=== PATIENT | male | born 1965 | race Caucasian/White ===

== ENCOUNTER 2021-06-27 14:41 | Emergency (ER) | payer BC, SELFPAY ==
[2021-06-27 14:48] VITALS: BP 140/92; PULSE 112; RESP 20; TEMP 36.5; O2SAT 97
--- NOTE | 2021-06-27 14:49 | ED.WOUNDLAC ---
HPI - Wound/Laceration General Chief Complaint: Wound/Laceration Stated Complaint: Laceration to Finger/Left Hand Time Seen by Provider: 06/27/21 14:49 Source: patient, family and RN notes reviewed History of Present Illness HPI narrative: Patient is a 55-year-old male who presents the urgent care with his spouse with complaints of a laceration to the left index finger. Patient is right-hand dominant and states that he was using a machete to cut pumpkins approximately 30 minutes prior to arrival and it sliced the left index finger. Patient states that he is up-to-date on his tetanus. Denies of any other injuries. No acute distress noted. Patient and spouse aware of the plan of care. Some parts of this dictation were generated by voice recognition software and may contain typographical and/or grammatical inaccuracies. Related Data Home Medications Medication Instructions Recorded Confirmed bupropion HCl 300 mg PO QAM 06/27/21 06/27/21 duloxetine 30 mg PO DAILY 06/27/21 06/27/21 lovastatin 20 mg PO DAILY 06/27/21 06/27/21 Allergies Allergy/AdvReac Type Severity Reaction Status Date / Time No Known Allergies Allergy Verified 06/27/21 14:55 Review of Systems Review of Systems: CONSTITUTIONAL: Denies fever, chills, or sweats. EYES: Denies visual changes, redness, or discharge. ENT: Denies rhinorrhea, congestion, sore throat, or otalgia. CARDIOVASCULAR: Denies chest pain, palpitations, or edema. RESPIRATORY: Denies cough or dyspnea. GASTROINTESTINAL: Denies abdominal pain, nausea, vomiting, or diarrhea. GENITOURINARY: Denies dysuria or hematuria. SKIN: Reports of a laceration to the left index finger MUSCULOSKELETAL: Denies back pain, joint pain, or myalgia. NEUROLOGIC: Denies headache, numbness, or weakness. All other systems reviewed are negative, except as documented in HPI. PMFSH Comments At the time of my signature, I reviewed and agree with the nursing past medical, surgical, social, and family history. There is no relevant family history pertinent to the patient complaint. Exam Narrative: GENERAL: This is a well-nourished, well-developed patient, in no apparent distress. HEAD: normocephalic, atraumatic. EYES: PERRL. Sclera clear/white. Vision is grossly intact. EARS: External ears normal NOSE: External nose normal with no obvious nasal discharge, nares without redness, no rhinorrhea. THROAT: Mucous membranes moist, posterior pharynx clear. NECK: Neck supple CARDIOVASCULAR: Regular rate and rhythm SKIN: 3 cm linear laceration to the dorsal aspect of the left index finger between the PIP and the MCP. Warm, intact with no suspicious lesions or rash, good texture and turgor. NEURO: awake, alert, and oriented to person, place and time. There were no obvious focal neurologic abnormalities. EXTREMITIES: Range of motion to left upper extremity within normal limits. Positive strong left radial pulse with capillary refill less than 2 seconds Course Vital Signs Vital signs: Vital Signs Temperature 97.7 F 06/27/21 14:48 Pulse Rate 112 H 06/27/21 14:48 Respiratory Rate 20 06/27/21 14:48 Blood Pressure 140/92 H 06/27/21 14:48 Pulse Oximetry 97 06/27/21 14:48 Temperature 97.7 F 06/27/21 14:48 Pulse Rate 112 H 06/27/21 14:48 Respiratory Rate 20 06/27/21 14:48 Blood Pressure 140/92 H 06/27/21 14:48 Pulse Oximetry 97 06/27/21 14:48 Reviewed-patient is informed that they may have pre-hypertension or hypertension based on a blood pressure reading in the department. I recommend the patient call the primary care provider listed on their discharge instructions or a physician of their choice this week to arrange follow-up for further evaluation of possible pre-hypertension or hypertension. Procedures Laceration Laceration 1: Site: other (Index finger) Side (If applicable): left Size (cm): 3 Description: linear Depth: simple, single layer Local Anesthetic: jorge
== END 2021-06-27 15:41 | disposition home or self-care (01) ==
PROVIDERS: Emergency Provider Nurse Practitioner Family
DX: S61.211A Laceration without foreign body of left index finger without damage to nail, initial encounter (principal); W27.8XXA Contact with other nonpowered hand tool, initial encounter; E78.00 Pure hypercholesterolemia, unspecified; F41.9 Anxiety disorder, unspecified
CPT/HCPCS: 12002; 99212; G0463

== ENCOUNTER 2024-05-06 19:21 | Emergency (ER) | payer OTHER, SELFPAY ==
--- NOTE | ~2024-05-06 | XR_ITS ---
XR foot RT min 3V Ordering provider: Latrice Martinez NP History: . stepped on nail, pain, infection . Comparison: None. FINDINGS: BONES: No acute fracture or dislocation. Calcaneus spur. JOINT SPACES: Normal. No tarsal coalition. SOFT TISSUES: Normal. IMPRESSION: No acute osseous abnormality of the right foot. Reviewed, dictated and finalized at location A.
[2024-05-06 19:28] VITALS: BP 134/77; PULSE 100; RESP 16; TEMP 36.6; O2SAT 98
--- NOTE | 2024-05-06 19:32 | ED.SKABFB ---
HPI - Skin/Abscess/Foreign Bdy General Chief complaint: Wound/Laceration Stated complaint: Puncture Wound/Right Foot Time Seen by Provider: 05/06/24 19:34 Source: patient and RN notes reviewed Mode of arrival: ambulatory Limitations: dementia History of Present Illness HPI narrative: 58-year-old male presents with concern for redness, pain to his right foot. Reports more than 5 weeks ago he stepped on a screw that was attached to a board that had a puncture wound on the bottom of his foot. He reports he has had pain in the foot since that time but over the last 3 days has had redness, swelling, warmth in the dorsal foot above where the puncture wound was. He denies fever, aches, chills, sweats MD complaint: other (Redness) Related Data Home Medications Medication Instructions Recorded Confirmed bupropion HCl 300 mg 24 hr tablet, 300 mg PO QAM 06/27/21 06/27/21 extended release lovastatin 20 mg tablet 20 mg PO DAILY 06/27/21 06/27/21 lisinopril 30 mg tablet mg 05/06/24 sildenafil 50 mg tablet mg 05/06/24 Allergies Allergy/AdvReac Type Severity Reaction Status Date / Time No Known Allergies Allergy Verified 06/27/21 14:55 Review of Systems Review of Systems: CONSTITUTIONAL: Denies malaise, chills, sweats, or fever. EYES: Denies redness, or discharge. ENT: Denies rhinorrhea, congestion, swollen lips, swollen tongue CARDIOVASCULAR: Denies chest pain, palpitations, or edema. RESPIRATORY: Denies cough or dyspnea. GASTROINTESTINAL: Denies abdominal pain, nausea, vomiting SKIN: Reports redness, swelling, pain to the dorsal right foot. Denies purulent drainage, vesicles, bullae, numbness, pain beyond proportion MUSCULOSKELETAL: Reports right foot pain NEUROLOGIC: Denies headache. All systems reviewed & are unremarkable except as noted in HPI and below PMFSH Comments At time of signature, agree with nursing past medical, surgical, social and family history. There is no relevant family history pertinent to the presenting complaint Exam Narrative: GENERAL: Well-appearing, well-nourished, and in no acute distress. HEAD: Normocephalic, atraumatic. EYES: PERRLA, conjunctivae clear ENT: Mucous membranes moist. NECK: Supple. No lymphadenopathy CHEST: Clear to auscultation. No respiratory distress. HEART: Regular rate and rhythm. SKIN: Warm, dry. Erythema, induration, tenderness, warmth with sharp margins noted dorsal right foot, closed/healed puncture wound noted to the pedal aspect of the right foot. No vesicles, bullae, necrosis, ecchymosis, crepitus noted. NEURO: Alert and oriented x3. PSYCH: Normal mood and affect Course Course Emergency Course: Patient is aware of diagnosis, understands and agrees to treatment plan. Anticipatory guidance given. Patient agrees to follow-up as directed and is aware of reasons to seek care at the emergency department. Portions of this record may have been created with voice recognition software Level of Care: Express Care Visit Vital Signs Vital signs: Vital Signs Temperature 98 F 05/06/24 19:28 Pulse Rate 100 05/06/24 19:28 Respiratory Rate 16 05/06/24 19:28 Blood Pressure 134/77 05/06/24 19:28 Pulse Oximetry 98 05/06/24 19:28 Oxygen Delivery Room Air 05/06/24 19:28 Temperature 98 F 05/06/24 19:28 Pulse Rate 100 05/06/24 19:28 Respiratory Rate 16 05/06/24 19:28 Blood Pressure 134/77 05/06/24 19:28 Pulse Oximetry 98 05/06/24 19:28 Oxygen Delivery Room Air 05/06/24 19:28 Reviewed. MDM - Skin/Abscess/Foreign Bdy MDM Narrative Medical decision making narrative: I evaluated this in the [facility] care. History is obtained from patient who is an independent historian and physical exam was performed.? Available medical records were reviewed. ? Exam findings and relevant testing show no acute concerns or changes; patient is non-toxic appearing and is in no distress. No risk factors or findings concerning for epidural
== END 2024-05-06 19:54 | disposition home or self-care (01) ==
PROVIDERS: Emergency Provider Nurse Practitioner; PCP Physician Assistant
DX: L03.115 Cellulitis of right lower limb (principal); E78.00 Pure hypercholesterolemia, unspecified; F41.9 Anxiety disorder, unspecified
CPT/HCPCS: 73630; 99213; G0463

== ENCOUNTER 2024-09-23 13:26 | Emergency (ER) | payer OTHER, SELFPAY ==
[2024-09-23 13:30] VITALS: BP 102/67; PULSE 110; RESP 18; TEMP 36.1; O2SAT 97
--- OUTSIDE RECORDS SUMMARY | 2024-09-23 13:31 | XMS_ITS | Encounter Summary ---
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 us Historical Provider Final Res ult documented in this encounter Visit Diagnoses Not on filedocumented in this encounter Additional Health Concerns Infection Onset Date Last Indicated Resolved Time COVID: Suspected 08/20/2023 08/20/2023 08/20/2023 5:37 PM BAR EXAMINER COVID: Suspected 08/20/2023 08/20/2023 08/20/2023 10:18 PM BAR EXAMINER Influenza, adult 08/20/2023 08/20/2023 08/27/2023 3:07 AM BAR EXAMINER documented as of this encounter Care Teams Mechanical Maintenance Worker Relationship Specialty Start Date End Date Blessing Jolly PA [address] [facility] [address] [place] [address] PCP - General Internal Medicine 12/13/18 documented as of this encounter
--- OUTSIDE RECORDS SUMMARY | 2024-09-23 13:31 | XMS_ITS | Encounter Summary ---
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 us Historical Provider Final Res ult documented in this encounter Visit Diagnoses Not on filedocumented in this encounter Additional Health Concerns Infection Onset Date Last Indicated Resolved Time COVID: Suspected 08/20/2023 08/20/2023 08/20/2023 5:37 PM TERRITORY SALES REPRESENTATIVE COVID: Suspected 08/20/2023 08/20/2023 08/20/2023 10:18 PM TERRITORY SALES REPRESENTATIVE Influenza, adult 08/20/2023 08/20/2023 08/27/2023 3:07 AM TERRITORY SALES REPRESENTATIVE documented as of this encounter Care Teams Aviation Safety Technician Relationship Specialty Start Date End Date Blessing Jolly PA [address] [facility] [address] [place] [address] PCP - General Internal Medicine 12/13/18 documented as of this encounter
--- OUTSIDE RECORDS SUMMARY | 2024-09-23 13:31 | XMS_ITS | Encounter Summary ---
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 Historical Provider Final Res ult * PROCEDURE - RESULT (03/19/2018 12:00 AM CDT) Narrative 03/19/2018 12:00 AM CDT Ordered by an unspecified provider. Historical Provider Final Res ult documented in this encounter Visit Diagnoses Not on filedocumented in this encounter Additional Health Concerns Infection Onset Date Last Indicated Resolved Time COVID: Suspected 08/20/2023 08/20/2023 08/20/2023 5:37 PM RAILROAD COOK COVID: Suspected 08/20/2023 08/20/2023 08/20/2023 10:18 PM RAILROAD COOK Influenza, adult 08/20/2023 08/20/2023 08/27/2023 3:07 AM RAILROAD COOK documented as of this encounter Care Teams Manager Basketball Relationship Specialty Start Date End Date Blessing Jolly PA [address] [facility] [address] [place] [address] PCP - General Internal Medicine 12/13/18 documented as of this encounter
--- OUTSIDE RECORDS SUMMARY | 2024-09-23 13:31 | XMS_ITS | Referral Summary ---
Author Organization [facility] [address] [facility] Address [address] [place] [address] Care Team Providers Care Broaching Machine Operator Name Role Phone Blessing Jolly Primary Care Provider [phone]- [phone] Encounters Date Type Department Care Team Description 09/13/2024 Orders Only [facility] Medicine [address] [place] [address] [place] [phone] Blessing Jolly PA Hypertension, essential (Primary Dx); Hypertriglyceridemia; Annual physical exam; Fatigue, unspecified type; Prostate cancer screening; Hyperglycemia; Other fatigue 09/13/[address] [place] [phone] Blessing Jolly PA from Last 3 Months Allergies No known active allergies Medications lisinopriL (PRINIVIL,ZESTR IL) 30 mg tablet Take 1 tablet (30 mg total) by mouth daily 90 tablet 3 4 Active buPROPion XL (WELLBUTRIN XL) 300 mg 24 hr tablet Take 1 tablet (300 mg total) by mouth every morning 90 tablet 3 4 Active rosuvastatin (CRESTOR) 10 mg tablet Take 1 tablet (10 mg total) by mouth daily 90 tablet 3 4 Active sildenafiL (VIAGRA) 50 mg tablet TAKE 1 TABLET BY MOUTH DAILY NEEDED FOR ERECTILE DYSFUNCTION 30 tablet 4 Active Active Problems Problem Noted Date Diagnosed Date Colon cancer screening 08/23/2023 Prostate cancer screening 04/07/2022 Assessment & Plan (08/23/2023 5:10 PM MUSICAL INSTRUMENTS ASSEMBLER): Check PSA Assessment & Plan (04/07/2022 12:40 AM CDT): Check PSA Nocturia 04/07/2022 Assessment & Plan (04/07/2022 12:42 AM CDT): This is a significant, separately identifiable problem that was evaluated and managed on the same day as the wellness exam Patient has noticed increased nocturia. Will rule out UTI. He desires referral to [facility] consult for further evaluation Morbid obesity 11/18/2021 Assessment & Plan (08/23/2023 5:10 PM MUSICAL INSTRUMENTS ASSEMBLER): Discussed the patient's BMI. The BMI is above average. BMI management plan is completed. BMI Follow-up includes: nutrition counseling, exercise counseling and education provided. Patient has an obesity-related condition (not limited to: hypertension, obstructive sleep apnea, osteoarthritis, hyperlipidemia, diabetes, etc.). Therefore, morbid obesity may be documented for patients with a BMI between 35.00-39.99. Assessment & Plan (04/07/2022 12:42 AM CDT): Discussed the patient's BMI. The BMI is above average. BMI management plan is completed. BMI Follow-up includes: nutrition counseling, exercise counseling and education provided. Patient has an obesity-related condition (not limited to: hypertension, obstructive sleep apnea, osteoarthritis, hyperlipidemia, diabetes, etc.). Therefore, morbid obesity may be documented for patients with a BMI between 35.00-39.99. Assessment & Plan (11/18/2021 3:14 PM CDT): Obesity is unchanged. Discussed the patient's BMI. The BMI is above average. BMI management plan is completed. BMI Follow-up includes: nutrition counseling, exercise counseling and education provided. BMI 36.0-36.9,adult 11/18/2021 Assessment & Plan (08/23/2023 5:10 PM MUSICAL INSTRUMENTS ASSEMBLER): Discussed the patient's BMI. The BMI is above average. BMI management plan is completed. BMI Follow-up includes: nutrition counseling, exercise counseling and education provided. Assessment & Plan (04/07/2022 12:42 AM CDT): Discussed the patient's BMI. The BMI is above average. BMI management plan is completed. BMI Follow-up includes: nutrition counseling, exercise counseling and education provided. Assessment & Plan (11/18/2021 3:14 PM CDT): Obesity is unchanged. Discussed the patient's BMI. The BMI is above average. BMI management plan is completed. BMI Follow-up includes: nutrition counseling, exercise counseling and education provided. Elevated LFTs 11/18/2021 Assessment & Plan (12/10/2021 5:54 AM CDT): Patient had elevated LFTs but upon recheck they have normalized. Continue to monitor. Assessment & Plan (11/18/2021 9:25 PM CDT): This is a significant, separately identifiable problem that was evaluated and managed on the same day as the wellness exam Check hepatitis panel and recheck labs. Encouraged to decrease alcohol. Will monitor medications very carefully recheck in a couple months. ED (erectile dysfunction) 11/18/2021 Assessment & Plan (08/23/2023 5:10 PM MUSICAL INSTRUMENTS ASSEMBLER): Continue Viagra Assessment & Plan (04/07/2022 12:40 AM CDT): Patient has tried Viagra for his ED symptoms without sufficient results. Ready to see the urologist. Will make referral to [facility]. Assessment & Plan (12/10/2021 5:55 AM CDT): Patient has been experiencing erectile dysfunction. It seems to be related to the Cymbalta as once he stopped this his performance did improve. However his emotional stability is not as good off of it so discussed options of restarting the Cymbalta and adding erectile dysfunction medication like Viagra. Reviewed risks benefits alternatives side effects and proper use. Reviewed it is important to get his blood pressure tightly controlled and monitor his symptoms as Viagra can affect blood pressure. He is not on nitrate. If he experiences chest pain shortness of breath visual changes or has extended erection he is to follow up immediately for further evaluation which may include an ER visit. He voices understanding Assessment & Plan (11/18/2021 9:23 PM CDT): Reviewed with patient the there are multiple reasons for XL dysfunction. It can be related to SSRIs or SNRIs but he also has elevated blood pressure today as well as cholesterol issues. Stressed the importance of correcting the blood pressure. He states he is extremely tired today and is in convinced he does have high blood pressure so will have him check it at home over the next week and then follow-up in the office next Thursday for BP check. If elevated will start medication. Once that is corrected if symptoms still persist may consider Viagra versus referral to Urology. Discussed relationships and how that can also affect performance. Hypertension, essential 11/18/2021 Assessment & Plan (08/23/2023 5:10 PM MUSICAL INSTRUMENTS ASSEMBLER): Bp is stable/in acceptable range for any co-morbidities. Encouraged to limit sodium intake and exercise for weight control. Continue lisinopril 30 Assessment & Plan (04/07/2022 12:40 AM CDT): Bp is stable/in acceptable range for any co-morbidities. Encouraged to limit sodium intake and exercise for weight control. Continue lisinopril 30 Assessment & Plan (12/14/2021 3:21 PM CDT): The has been on lisinopril 10. Increase to 20. May take 2 of his 10 mg tablets until the supplies exhausted and then will increase dose as appropriate. Follow with me in 1 week with the nurse to reassess blood pressure readings or sooner if he has any problems or concerns Assessment & Plan (12/10/2021 5:58 AM CDT): Encouraged to limit sodium intake and exercise for weight control. Patient is to increase his lisinopril to 30 mg daily. Will continue to monitor closely. Follow-up in 1 week with nurse to recheck or sooner for any other problems or concerns. He thinks he still has enough supply of the 10 mg to take 3 together until they are exhausted. Assessment & Plan (11/18/2021 9:25 PM CDT): This is a significant, separately identifiable problem that was evaluated and managed on the same day as the wellness exam BP is elevated today but patient thinks it is because he is sleep deprived. Will have him check readings at home and bring them in with him next week follow-up on Thursday with the nurse for BP check. If normalized that is acceptable if not will start a antihypertension medication. Annual physical exam 11/05/2020 Assessment & Plan (08/23/2023 5:10 PM MUSICAL INSTRUMENTS ASSEMBLER): Encouraged healthy lifestyle, good nutrition and exercise. Encouraged Calcium and Vitamin D and weight bearing exercise for bone health. Reviewed immunizations Reviewed age appropirate screenings. Assessment & Plan (11/18/2021 9:21 PM CDT): Encouraged healthy lifestyle, good nutrition and exercise. Encouraged Calcium and Vitamin D and weight bearing exercise for bone health. Reviewed immunizations Reviewed age appropirate screenings. Assessment & Plan (11/05/2020 9:27 PM CDT): Encouraged healthy lifestyle, good nutrition and exercise. Encouraged Calcium and Vitamin D and weight bearing exercise for bone health. Reviewed immunizations Reviewed age appropirate screenings. Fatigue 11/05/2020 Assessment & Plan (08/23/2023 5:10 PM MUSICAL INSTRUMENTS ASSEMBLER): Probably multifactorial. Check labs and followup to re-evaluate Assessment & Plan (04/07/2022 12:40 AM CDT): Probably multifactorial. Check labs and followup to re-evaluate Assessment & Plan (11/05/2020 9:26 PM CDT): .sonali Diabetes mellitus screening 11/05/2020 Assessment & Plan (04/07/2022 12:40 AM CDT): Check labs Assessment & Plan (11/05/2020 9:26 PM CDT): Check labs Influenza vaccine refused 08/14/2019 Assessment & Plan (08/14/2019 9:38 PM MUSICAL INSTRUMENTS ASSEMBLER): Encouraged vaccine. Reviewed risks/ benefits. Patient refuses and accepts risks. Moderate episode of recurrent major depressive d isorder 12/12/2018 Assessment & Plan (08/23/2023 5:09 PM MUSICAL INSTRUMENTS ASSEMBLER): Continue Wellbutrin XL 300 Assessment & Plan (04/07/2022 12:42 AM CDT): This is a significant, separately identifiable problem that was evaluated and managed on the same day as the wellness exam Patient has been on Cymbalta 60 Wellbutrin XL 300. He is been coming on off of it as thinks it may give side effects towards ED. He states today he just really does not feel like his symptoms are as well controlled as they have been. He is ready to see a psychiatrist. Names of psychiatrists provided for him to call and make the appointment. He denies any suicidal or homicidal thoughts. If these occur he is to contact the office immediately or go to the ER if it is after hours Assessment & Plan (12/10/2021 5:54 AM CDT): Increased depression anxiety symptoms. This has happened since he stopped the Cymbalta. He is still doing Wellbutrin 300 mg. Encouraged him to restart the Cymbalta at 30 mg x 7 days and increase to 60 mg. Will see if that does control his symptoms but limit the amount of ED symptoms that he experiences. Will also start erectile dysfunction medication. Planned follow-up in 6 weeks to reassess. Assessment & Plan (11/18/2021 9:20 PM CDT): Symptoms had been fairly well controlled with Cymbalta 90 and Wellbutrin XL 300. Patient states 2 blood ago decreased to Cymbalta to 30 mg as he thought it was contributing to ED. Will continue monitor his symptoms and continue the current dose at 30 mg. Assessment & Plan (11/05/2020 9:24 PM CDT): Continue Cymbalta 90mg daily and Wellbutrin [id number] daily Assessment & Plan (09/19/2019 8:49 AM MUSICAL INSTRUMENTS ASSEMBLER): Stable with the Wellbutrin 300 mg and Cymbalta 90 mg. New prescription sent to pharmacy. Will plan to have him follow-up in about 6 months. Still encourage counseling. He still has the name a counselors in the area. Also discussed the possibility of an EAP opportunity at his employer. Encouraged him to check with human resources. Assessment & Plan (08/14/2019 9:39 PM MUSICAL INSTRUMENTS ASSEMBLER): This is a significant, separately identifiable problem that was evaluated and managed on the same day as the wellness exam Continue the Cymbalta restart Wellbutrin. Stressed importance of not running out/keeping appointments. Encouraged counseling and provided names/number for him to schedule at his convenience Assessment & Plan (12/18/2018 1:00 PM CDT): Stable. Continue current meds. Encouraged to start counseling and provided listing to choose from. Mixed hyperlipidemia 12/12/2018 Assessment & Plan (08/23/2023 5:10 PM MUSICAL INSTRUMENTS ASSEMBLER): Encouraged patient to follow low fat/low chol diet like the Mediterranean diet. Increase good fats in the diet. Increase exercise. Monitor labs as needed. Continue Crestor 10 Assessment & Plan (04/07/2022 12:40 AM CDT): Encouraged patient to follow low fat/low chol diet like the Mediterranean diet. Increase good fats in the diet. Increase exercise. Monitor labs as needed. He transition to Crestor in November. He is due for labs. Assessment & Plan (11/18/2021 9:24 PM CDT): This is a significant, separately identifiable problem that was evaluated and managed on the same day as the wellness exam Encouraged patient to follow low fat/low chol diet like the Mediterranean diet. Increase good fats in the diet. Increase exercise. Monitor labs as needed. Lipids are not well controlled with the lovastatin. Encouraged him to stop it and will transition to the Crestor 10 mg. He has elevated LFTs so will have to watch these closely. Encouraged no alcohol and will check hepatitis panel to rule out any other underlying cause. May be related to fatty liver so monitor closely and recheck labs in a couple months. Assessment & Plan (11/05/2020 9:24 PM CDT): Encouraged patient to follow fat/low chol diet like the Mediterranean diet. Increase good fats in the diet. Increase exercise. Monitor labs as needed. Continue statin Assessment & Plan (08/14/2019 9:35 PM MUSICAL INSTRUMENTS ASSEMBLER): Encouraged patient to continue low fat/low chol diet. Continue exercise. Increase good fats in the diet. Monitor labs as needed. Assessment & Plan (12/18/2018 12:59 PM CDT): Encouraged patient to continue low fat/low chol diet. Continue exercise. Increase good fats in the diet. Monitor labs as needed. Continue statin Daytime sleepiness 12/12/2018 Vitamin D deficiency 12/12/2018 Assessment & Plan (08/14/2019 9:34 PM MUSICAL INSTRUMENTS ASSEMBLER): supplement Assessment & Plan (12/18/2018 12:58 PM CDT): Supplement otc Hypertriglyceridemia 12/12/2018 Assessment & Plan (08/23/2023 5:10 PM MUSICAL INSTRUMENTS ASSEMBLER): Encouraged patient to follow low fat/low chol diet like the Mediterranean diet. Increase good fats in the diet. Increase exercise. Monitor labs as needed. Continue Crestor 10 Assessment & Plan (11/18/2021 9:21 PM CDT): Encouraged patient to follow low fat/low chol diet like the Mediterranean diet. Increase good fats in the diet. Increase exercise. Monitor labs as needed. Lipids are not well controlled with the lovastatin. Encouraged him to stop it and will transition to the Crestor 10 mg. He has elevated LFTs so will have to watch these closely. Encouraged no alcohol and will check hepatitis panel to rule out any other underlying cause. May be related to fatty liver so monitor closely and recheck labs in a couple months. Assessment & Plan (11/05/2020 9:24 PM CDT): Encouraged patient to follow fat/low chol diet like the Mediterranean diet. Increase good fats in the diet. Increase exercise. Monitor labs as needed. Continue statin Assessment & Plan (08/14/2019 9:34 PM MUSICAL INSTRUMENTS ASSEMBLER): Encouraged patient to continue low fat/low chol diet. Continue exercise. Increase good fats in the diet. Monitor labs as needed. Assessment & Plan (12/18/2018 12:59 PM CDT): Encouraged patient to continue low fat/low chol diet. Continue exercise. Increase good fats in the diet. Monitor labs as needed. Due for labs Resolved Problems Problem Noted Date Diagnosed Date Resolved Date Obesity (BMI 30-39.9) 11/05/20202021 Assessment & Plan (11/05/2020 5:02 PM CDT): Obesity is unchanged. Discussed the patient's BMI. The BMI is above average. BMI management plan is completed. BMI Follow-up includes: nutrition counseling, exercise counseling and education provided. BMI 38.0-38.9,adult 11/05/2020 11/19/19 Assessment & Plan (11/05/2020 5:02 PM CDT): Obesity is unchanged. Discussed the patient's BMI. The BMI is above average. BMI management plan is completed. BMI Follow-up includes: nutrition counseling, exercise counseling and education provided. BMI 37.0-37.9, adult 09/19/2019 021 Assessment & Plan (09/19/2019 8:17 AM MUSICAL INSTRUMENTS ASSEMBLER): Obesity is unchanged. Discussed the patient's BMI. The BMI is above average. BMI management plan is completed. BMI Follow-up includes: nutrition counseling, exercise counseling and education provided. Annual physical exam 08/14/2019 020 Assessment & Plan (08/14/2019 9:38 PM MUSICAL INSTRUMENTS ASSEMBLER): Encouraged healthy lifestyle, good nutrition and exercise. Encouraged Calcium and Vitamin D and weight bearing exercise for bone health. Reviewed immunizations Reviewed age appropirate screenings. BMI 38.0-38.9,adult 08/03/2019 09/19/19 20 Assessment & Plan (08/03/2019 8:12 AM MUSICAL INSTRUMENTS ASSEMBLER): Obesity is unchanged. Discussed the patient's BMI. The BMI is above average. BMI management plan is completed. BMI Follow-up includes: nutrition counseling, exercise counseling and education provided. Dysuria 12/18/2018 11/05/2020 Assessment & Plan (12/18/2018 12:58 PM CDT): Check urine culture, psa and STD labs. If negative, may consider BPH medication vs referral to Urology Other fatigue 12/18/2018 08/14/2019 Assessment & Plan (12/18/2018 1:00 PM CDT): Probably multifactorial. Check labs and followup to re-evaluate Screening for STD (sexually transmitted disease) 12/18/2018 08/14/2019 Assessment & Plan (12/18/2018 1:00 PM CDT): Check std labs Prostate cancer screening 12/18/2018 Assessment & Plan (12/18/2018 1:00 PM CDT): Check labs Need for Tdap vaccination 12/18/2018 Assessment & Plan (12/18/2018 1:00 PM CDT): Tdap updated in the office today BMI 37.0-37.9, adult 12/13/2018 019 Assessment & Plan (12/18/2018 12:59 PM CDT): Obesity is unchanged. Discussed the patient's BMI. The BMI is above average; BMI management plan is completed. General weight loss/lifestyle modification strategies discussed (elicit support from others; identify saboteurs; non-food rewards, etc). Obesity (BMI 30-39.9) 12/13/20182020 Assessment & Plan (09/19/2019 8:17 AM MUSICAL INSTRUMENTS ASSEMBLER): Obesity is unchanged. Discussed the patient's BMI. The BMI is above average. BMI management plan is completed. BMI Follow-up includes: nutrition counseling, exercise counseling and education provided. Assessment & Plan (08/03/2019 8:13 AM MUSICAL INSTRUMENTS ASSEMBLER): Obesity is unchanged. Discussed the patient's BMI. The BMI is above average. BMI management plan is completed. BMI Follow-up includes: nutrition counseling, exercise counseling and education provided. Assessment & Plan (12/18/2018 12:58 PM CDT): Obesity is unchanged. Discussed the patient's BMI. The BMI is above average; BMI management plan is completed. General weight loss/lifestyle modification strategies discussed (elicit support from others; identify saboteurs; non-food rewards, etc). Immunizations Name Administration Dates Next Due Influenza, Unspecified 08/18/2023(Deferr ed: Patient decision),11/15/2021(Deferred: Patient Refused),09/17/2021(Deferred: Patient Refused),08/03/2019(Deferred: Patient Refused),05/17/2018(Deferred: Patient Refused) Tdap 12/13/2018,12/01/2016 Social History Tobacco Use Types Packs/Day Years Used Date Smoking Tobacco: Former Cigarettes Smokeless Tobacco: Never Tobacco Cessation:Counseling Given: Not Answered Alcohol Use Standard Drinks/Week Comments Yes 0 (1 standard drink = 0.6 oz pur e alcohol) AUDIT-C Answer Date Recorded Q1: How often do you have a drink containing alc ohol? Never 08/18/2023 Average Number of Drinks Not on file 024 Q3: How often do you have si x or more drinks on one occasion? 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 on file Not on file Not on file Last Filed Vital Signs Vital Sign Reading Time Taken Comments Blood Pressure 118/74 08/20/2023 5:03 PM MUSICAL INSTRUMENTS ASSEMBLER Pulse 110 08/20/2023 5:03 PM MUSICAL INSTRUMENTS ASSEMBLER Temperature 36.8 C (98.3 F) 08/20/2023 5:30 PM MUSICAL INSTRUMENTS ASSEMBLER Respiratory Rate 18 08/20/2023 5:03 PM MUSICAL INSTRUMENTS ASSEMBLER Oxygen Saturation 97% 08/20/2023 5:03 PM MUSICAL INSTRUMENTS ASSEMBLER Inhaled Oxygen Concentration - - Weight 112.5 kg (248 lb) 08/20/2023 5:03 PM MUSICAL INSTRUMENTS ASSEMBLER Height 175.3 cm (5' 9 ) 08/20/2023 5:03 PM MUSICAL INSTRUMENTS ASSEMBLER Body Mass Index 36.62 08/20/2023 5:03 PM MUSICAL INSTRUMENTS ASSEMBLER Plan of Treatment Not on file Procedures Procedure Name Priority Date/Time Associated Diagnosis Comments PSA SCREEN Routine 05/16/2023 9:35 AM CDT Prostate cancer screening Annual physical exam HEPATITIS PANEL, ACUTE Routine 12/07/2021 10:19 AM CDT Elevated LFTs COLONOSCOPY Routine 01/26/2014 from Last 3 Months or Most Recently Relevant to Health Maintenance Results * PSA screen (05/16/2023 9:35 AM CDT) PSA 2.03 < OR = 4.00 ng/mL [facility] Comment: The total PSA value from this assay system is standardized against the WHO standard. The test result will be approximately 20% lower when compared to the equimolar-standardized total PSA (Robin Elida). Comparison of serial PSA results should be interpreted with this fact in mind. This test was performed using the Siemens chemiluminescent method. Values obtained from different assay methods cannot be used interchangeably. PSA levels, regardless of value, should not be interpreted as absolute evidence of the presence or absence of disease. Blood 05/16/2023 9:35 AM CDT 05/16/2023 9:36 AM CDT Narrative [facility] - 05/17/2023 12:10 PM CDT FASTING:YES FASTING: YES Blessing [facility] BLOOD ORDERABLES Final Result Performing Organization Address City/[facility]/ZIP Co de Phone Number ORI [facility] [address] [facility] [address] * Hepatitis panel, acute (12/07/2021 10:19 AM CDT) Hep A IgM NON-REACTI VE NON-REACT JAYESH [facility] Comment: For additional information, please refer to http://[employer]/faq/QXM366 (This link is being provided for informational/ educational purposes only.) HepBsAg NON-REACTI VE NON-REACT JAYESH [facility] Hep B core IgM NON-REACTI VE NON-REACT JAYESH [facility] Hep C Ab NON-REACTI VE NON-REACT JAYESH [facility] SIGNAL TO CUT-OFF 0.00 <1.00 [facility] Comment: HCV antibody was non-reactive. There is no laboratory evidence of HCV infection. In most cases, no further action is required. However, if recent HCV exposure is suspected, a test for HCV RNA (test code 22625) is suggested. For additional information please refer to http://[employer]/faq/TMD24j2 (This link is being provided for informational/ educational purposes only.) Blood specimen (specimen) 12/07/2021 10:19 AM CDT 12/07/2021 10:19 AM CDT Blessing [facility] MICROBIOLOGY - GENERAL ORDERABLES Final Result Performing Organization Address City/[facility]/ZIP Co de Phone Number ORI [place] [address] [address] * Colonoscopy (01/26/2014) Anatomical Region Laterality Modality Other Historical Provider ENDOSCOPY PROCEDURES Olivia l Result from Last 3 Months or Most Recently Relevant to Health Maintenance Insurance BLUE ACCESS [place] [email or web address] OOS BLUE [employer] OOS Care Teams Broaching Machine Operator Relationship Specialty Start Date End Date Blessing Jolly PA [address] [address] PCP - General Internal Medicine 12/13/18
--- OUTSIDE RECORDS SUMMARY | 2024-09-23 13:31 | XMS_ITS | Clinical Summary ---
Author Organization [facility] [address] [facility] Address [address] [place] [address] Care Team Providers Care Bpo Specialist Name Role Phone Blessing Jolly Primary Care Provider [phone] Allergies No known active allergies Medications lisinopriL [...] 04/07/2022 Assessment & Plan (08/23/2023 5:10 PM [employer]): Check PSA Assessment & Plan (04/07/2022 12:40 AM CDT): Check PSA Nocturia 04/07/2022 Assessment & Plan (04/07/2022 12:42 AM CDT): This is a significant, separately identifiable problem that was evaluated and managed on the same day as the wellness exam Patient has noticed increased nocturia. Will rule out UTI. He desires referral to [place] [facility] consult for further evaluation Morbid obesity 11/18/2021 Assessment & Plan (08/23/2023 5:10 PM [employer]): Discussed the patient's BMI. The BMI is [...] 11/18/2021 Assessment & Plan (08/23/2023 5:10 PM [employer]): Discussed the patient's BMI. The BMI is [...] 11/18/2021 Assessment & Plan (08/23/2023 5:10 PM [employer]): Continue Viagra Assessment & Plan (04/07/2022 12:40 [...] 11/18/2021 Assessment & Plan (08/23/2023 5:10 PM [employer]): Bp is stable/in acceptable range for any [...] 11/05/2020 Assessment & Plan (08/23/2023 5:10 PM [employer]): Encouraged healthy lifestyle, good nutrition and exercise. [...] 11/05/2020 Assessment & Plan (08/23/2023 5:10 PM [employer]): Probably multifactorial. Check labs and followup to re-evaluate Assessment & Plan (04/07/2022 12:40 AM CDT): Probably multifactorial. Check labs and followup to re-evaluate Assessment & Plan (11/05/2020 9:26 PM CDT): .gamati Diabetes mellitus screening 11/05/2020 Assessment & Plan (04/07/2022 12:40 AM CDT): Check labs Assessment & Plan (11/05/2020 9:26 PM CDT): Check labs Influenza vaccine refused 08/14/2019 Assessment & Plan (08/14/2019 9:38 PM [employer]): Encouraged vaccine. Reviewed risks/ benefits. Patient refuses and accepts risks. Moderate episode of recurrent major depressive d isorder 12/12/2018 Assessment & Plan (08/23/2023 5:09 PM [employer]): Continue Wellbutrin XL 300 Assessment & Plan [...] CDT): Continue Cymbalta 90mg daily and Wellbutrin [id number] daily Assessment & Plan (09/19/2019 8:49 AM [employer]): Stable with the Wellbutrin 300 mg and Cymbalta 90 mg. New prescription sent to pharmacy. Will plan to have him follow-up in about 6 months. Still encourage counseling. He still has the name a counselors in the area. Also discussed the possibility of an EAP opportunity at his employer. Encouraged him to check with human resources. Assessment & Plan (08/14/2019 9:39 PM [employer]): This is a significant, separately identifiable problem [...] 12/12/2018 Assessment & Plan (08/23/2023 5:10 PM [employer]): Encouraged patient to follow low fat/low chol [...] statin Assessment & Plan (08/14/2019 9:35 PM [employer]): Encouraged patient to continue low fat/low chol diet. Continue exercise. Increase good fats in the diet. Monitor labs as needed. Assessment & Plan (12/18/2018 12:59 PM CDT): Encouraged patient to continue low fat/low chol diet. Continue exercise. Increase good fats in the diet. Monitor labs as needed. Continue statin Daytime sleepiness 12/12/2018 Vitamin D deficiency 12/12/2018 Assessment & Plan (08/14/2019 9:34 PM [employer]): supplement Assessment & Plan (12/18/2018 12:58 PM CDT): Supplement otc Hypertriglyceridemia 12/12/2018 Assessment & Plan (08/23/2023 5:10 PM [employer]): Encouraged patient to follow low fat/low chol [...] statin Assessment & Plan (08/14/2019 9:34 PM [employer]): Encouraged patient to continue low fat/low chol [...] 021 Assessment & Plan (09/19/2019 8:17 AM [employer]): Obesity is unchanged. Discussed the patient's BMI. The BMI is above average. BMI management plan is completed. BMI Follow-up includes: nutrition counseling, exercise counseling and education provided. Annual physical exam 08/14/2019 020 Assessment & Plan (08/14/2019 9:38 PM [employer]): Encouraged healthy lifestyle, good nutrition and exercise. Encouraged Calcium and Vitamin D and weight bearing exercise for bone health. Reviewed immunizations Reviewed age appropirate screenings. BMI 38.0-38.9,adult 08/03/2019 09/19/19 20 Assessment & Plan (08/03/2019 8:12 AM [employer]): Obesity is unchanged. Discussed the patient's BMI. [...] 12/13/20182020 Assessment & Plan (09/19/2019 8:17 AM [employer]): Obesity is unchanged. Discussed the patient's BMI. The BMI is above average. BMI management plan is completed. BMI Follow-up includes: nutrition counseling, exercise counseling and education provided. Assessment & Plan (08/03/2019 8:13 AM [employer]): Obesity is unchanged. Discussed the patient's BMI. [...] from others; identify saboteurs; non-food rewards, etc). Encounters Date Type Department Care Team Description 09/13/2024 Orders Only [address] [place] [address] Blessing Jolly PA Hypertension, essential (Primary Dx); Hypertriglyceridemia; Annual physical exam; Fatigue, unspecified type; Prostate cancer screening; Hyperglycemia; Other fatigue 09/13/2024 Telephone [facility] [address] [facility] [address] [place] [address] Blessing Jolly PA from Last 3 Months Immunizations Name Administration Dates Next Due Influenza, Unspecified 08/18/2023(Deferr ed: Patient decision),11/15/2021(Deferred: Patient Refused),09/17/2021(Deferred: Patient Refused),08/03/2019(Deferred: Patient Refused),05/17/2018(Deferred: Patient Refused) Tdap 12/13/2018,12/01/2016 Surgical History Surgery Date Site/Laterality Comments EXCISION LESION / POLYP NASAL HEAD & NECK SKIN LESION EXCISIONAL BIOPSY forehead COLONOSCOPY Family History Medical History Relation Name Comments Alcohol abuse Father Arthritis Father Heart attack Father Hyperlipidemia Father Hypertension Father Stent Father Skin cancer Mother Relation Name Status Comments Father Mother Social History Tobacco Use Types Packs/Day Years [...] Getting School Help Needed Not on file 08/16 Sex and Gender Information Value Date Recorded Sex Assigned at Not on file Legal Sex Male 8:50 AM [employer] Gender Identity Male 12/08/2021 9:51 PM CDT Sexual Orientation Not on file 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 Not on file Not on file Obstetrics History Last Filed Vital Signs Vital Sign Reading Time Taken Comments Blood Pressure 118/74 08/20/2023 5:03 PM [employer] Pulse 110 08/20/2023 5:03 PM [employer] Temperature 36.8 C (98.3 F) 08/20/2023 5:30 PM [employer] Respiratory Rate 18 08/20/2023 5:03 PM [employer] Oxygen Saturation 97% 08/20/2023 5:03 PM [employer] Inhaled Oxygen Concentration - - Weight 112.5 kg (248 lb) 08/20/2023 5:03 PM [employer] Height 175.3 cm (5' 9 ) 08/20/2023 5:03 PM [employer] Body Mass Index 36.62 08/20/2023 5:03 PM [employer] Plan of Treatment Health Maintenance Due Date Last Done Comments Hepatitis B Screening 1983 Zoster Vaccine (1 of 2) 2017 Colon Cancer Screening-Colonoscopy 01/27/2024 01/26/2014 Influenza Vaccine (#1) 2024 Depression Screening 08/18/2024 08/18/2023, 08/18/2023, 03/26/2022, Additional history exists Regular Well Visit/Exam 18-64 08/18/2024 08/18/2023, 11/18/2021, 11/05/2020, Additional history exists Prostate Cancer Screening-PSA 05/16/2025 05/16/2023, 08/02/2019 DTaP/Tdap/Td Vaccine (3 - Td or Tdap) 12/13/2028 12/13/2018, 12/01/2016 Colon Cancer Screening-CT Colonography Discontinued 01/26/2014 Colon Cancer Screening-DNA Stool Discontinued 01/26/2014 Colon Cancer Screening-FIT Discontinued 01/26/2014 Colon Cancer Screening-Sigmoidoscopy Discontinued 01/26/2014 Hepatitis C Screening Completed 12/07/2021, 019 Pneumococcal vaccine <65 Aged Out No longer eligible based on patient's age to complete this topic Procedures Procedure Name Priority Date/Time Associated Diagnosis Comments PSA SCREEN Routine 05/16/2023 9:35 AM CDT Prostate cancer screening Annual physical exam HEPATITIS PANEL, ACUTE Routine 12/07/2021 10:19 AM CDT Elevated LFTs COLONOSCOPY Routine 01/26/2014 from Last 3 Months or Most Recently Relevant to Health Maintenance Results * PSA screen (05/16/2023 9:35 AM CDT) PSA 2.03 < OR = 4.00 ng/mL [facility] Comment: The total PSA value from [...] Blessing MCKEON [facility] BLOOD ORDERABLES Final Result [facility] [address] [address] * Hepatitis panel, acute (12/07/2021 10:19 AM CDT) Hep A IgM NON-REACTI VE NON-REACT JAYESH [facility] Comment: For additional information, please refer to http://education.DroneDeploy/faq/QAB302 (This link is being provided for informational/ [...] a test for HCV RNA (test code 27463) is suggested. For additional information please refer to http://education.DroneDeploy/faq/CBW63z5 (This link is being provided for informational/ educational purposes only.) Blood specimen (specimen) 12/07/2021 10:19 AM CDT 12/07/2021 10:19 AM CDT Blessing MC[facility] MICROBIOLOGY - GENERAL ORDERABLES Final Result [facility] [address] [place] [address] * Colonoscopy (01/26/2014) Anatomical Region Laterality Modality Other Historical Provider ENDOSCOPY PROCEDURES Olivia gonzales Result from Last 3 Months or Most Recently Relevant to Health Maintenance Insurance [facility] BLUE ACCESS OOS BLUE ACCESS OOS Care Teams Bpo Specialist Relationship Specialty Start Date End Date Blessing Jolly PA [address] [facility] [address] [place] [address] PCP - General Internal Medicine 12/13/18
--- NOTE | 2024-09-23 14:01 | ED_ITS ---
HPI - Nausea/Vomiting/Diarrhea General Chief complaint: Nausea/Vomiting/Diarrhea Stated complaint: diarrhea/stomach/fever/chills Time Seen by Provider: 09/23/24 14:01 Source: patient Mode of arrival: ambulatory Limitations: no limitations History of Present Illness HPI Narrative: 58-year-old male presents with complaint of diarrhea, fatigue, chills, body aches, fever, abdominal pain for 4 days. Patient reports that stools are dark brown. No blood in stool. Patient complains of nausea but has not vomited. Reports he has eaten and drink very little in the last 4 days. Patient is Pale and diaphoretic. has not urinated since 6:00 a.m.. Concern for dehydration. All systems reviewed and negative except as noted above. Related Data Home Medications ?Medication ?Instructions ?Recorded ?Confirmed ?Last Taken ?Type bupropion HCl 300 mg 24 hr tablet, 300 mg PO QAM 06/27/21 06/27/21 Unknown History extended release lovastatin 20 mg tablet 20 mg PO DAILY 06/27/21 06/27/21 Unknown History lisinopril 30 mg tablet mg 05/06/24 Unknown History sildenafil 50 mg tablet mg 05/06/24 Unknown History Allergies Allergy/AdvReac Type Severity Reaction Status Date / Time No Known Allergies Allergy Verified 09/23/24 13:46 Review of Systems Review of Systems: CONSTITUTIONAL: Reports fever, chills, or sweats. Reports decreased appetite. EYES: Denies visual changes, redness, or discharge. ENT: Denies rhinorrhea, congestion, sore throat, or otalgia. CARDIOVASCULAR: Denies chest pain, palpitations, or edema. RESPIRATORY: Denies cough or dyspnea. GASTROINTESTINAL: reports abdominal pain, nausea, and diarrhea. no vomiting. GENITOURINARY: Denies dysuria or hematuria. Reports decreased Urine output. SKIN: Denies rash or itching. MUSCULOSKELETAL: Denies back pain, joint pain, or myalgia. NEUROLOGIC: Denies headache, numbness, or weakness. PSYCHIATRIC: Denies anxiety or depression. All other systems reviewed are negative, except as documented in HPI. [facility] Comments At time of signature, agree with nursing past medical, surgical, social and family history. There is no relevant family history pertinent to the presenting complaint. Exam Narrative: GENERAL: Patient is pale, diaphoretic, ill-appearing but in no acute distress HEAD: normocephalic, atraumatic. EYES: PERRL. Sclera clear/white. Vision is grossly intact. EARS: External ears normal NOSE: External nose normal NECK: Neck supple, non-tender without lymphadenopathy, masses or thyromegaly. CARDIOVASCULAR: Regular rate and rhythm without murmurs, gallops, or rubs. RESPIRATORY: Clear to auscultation. Breath sounds equal bilaterally. No wheezes, rales, or rhonchi. GASTROINTESTINAL: Abdomen soft, tender to epigastric and suprapubic, nondistended. Bowel sounds are hypoactive. No hepato-splenomegaly, or palpable masses. No guarding. SKIN: warm, Dry, intact with no suspicious lesions or rash, good texture and turgor. NEURO: awake, alert, and oriented to person, place and time. There were no obvious focal neurologic abnormalities. EXTREMITIES: No joint tenderness, effusion, or edema noted. Course Course Level of Care: Express Care Visit Vital Signs Vital signs: Vital Signs Temperature 36.1 C L 09/23/24 13:30 Pulse Rate 110 H 09/23/24 13:30 Respiratory Rate 18 09/23/24 13:30 Blood Pressure 102/67 09/23/24 13:30 Pulse Oximetry 97 09/23/24 13:30 Oxygen Delivery Room Air 09/23/24 13:30 Temperature 36.1 C L 09/23/24 13:30 Pulse Rate 110 H 09/23/24 13:30 Respiratory Rate 18 09/23/24 13:30 Blood Pressure 102/67 09/23/24 13:30 Pulse Oximetry 97 09/23/24 13:30 Oxygen Delivery Room Air 09/23/24 13:47 reviewed Transfer Transfered to: [place] Transportation: Other ( private car) Transfer rationale: transferring to [place] ER to further may abdominal pain Accepting physician: Dr. Trujillo MDM - Nausea/Vomiting/Diarrhea MDM Narrative Medical decision making narrative: transferring patient to [place] [facility] for further evaluation of abdominal tenderness. Concern for dehydration. Patient has not urinated for 7 hours. Please be advised this is a medical document. It is intended for [id number] communication. It is written in medical language and may contain unfamiliar abbreviations or verbiage. Medical documents are intended to carry relevant information, facts as evident, and the clinical opinion of the practitioner at the time of the encounter. This report may have been done utilizing a voice recognition system. Attempts have been made to correct errors. However, there may be uncorrected grammatical, spelling, and recognition errors present. The file time of this note does not necessarily represent the time of service. Discharge Plan Discharge Clinical Impression: Abdominal pain, Dehydration Patient Disposition: Acute Care Hospital Condition: Stable Patient Language: Amharic Prescriptions: No Action lovastatin 20 mg Tablet 20 mg PO DAILY bupropion HCl 300 mg Tablet Extended Release 24 Hr 300 mg PO QAM sildenafil 50 mg tablet lisinopril 30 mg tablet amoxicillin-pot clavulanate 875-125 mg tablet 1 tablet PO Q12H 10 Days Qty: 20 0RF Follow-up/Referrals: PHYSICIAN NOT ON STAFF,NONSTAFF [Primary Care Provider] - Time of Disposition: 14:16
== END 2024-09-23 14:19 | disposition short-term general hospital (02) ==
PROVIDERS: Emergency Provider Nurse Practitioner Family
DX: R10.13 Epigastric pain (principal); R10.30 Lower abdominal pain, unspecified; E86.0 Dehydration
CPT/HCPCS: 99212; G0463

== ENCOUNTER → 2024-12-12 16:50 | Outpatient (CLI) | payer OTHER, SELFPAY ==
--- NOTE | ~2024-12-12 | XR_ITS ---
AP and oblique views of the bilateral ribs, and PA chest radiograph Clinical History: Pain Findings: No rib fracture is seen. Osseous alignment is anatomic. Lungs are clear, without focal cons olidation or pleural effusion. Cardiomediastinal contour is within normal limits. Soft tissues are un remarkable. Impression: No rib fracture is seen. Clear lungs. Reviewed, dictated and finalized at [facility]. Impression: No rib fracture is seen. Clear lungs.
== END ==
PROVIDERS: PCP Physician Assistant; Visit Provider Physician Assistant
DX: R07.81 Pleurodynia (principal)
CPT/HCPCS: 71110

== ENCOUNTER 2025-03-18 19:21 | Emergency (ER) | payer OTHER, SELFPAY ==
--- NOTE | ~2025-03-18 | XR_ITS ---
EXAM: XR hand LT min 3V DATE: 03/18/2025 19:44 HISTORY: lacerations to palmar 2,3,4th digits/decreased rom of 3rd . COMPARISON: 11/25/2005. FINDINGS: Normal mineralization. No fracture or dislocation. No lytic or blastic lesion. Joint space s are maintained. No erosion or periosteal change. Soft tissues within normal limits. Chronic punctat e radiopaque foreign debris in the first finger. Soft tissue swelling of the left second and third di gits. IMPRESSION: No acute osseous finding in the left hand. Reviewed, dictated and finalized at location K.
--- OUTSIDE RECORDS SUMMARY | 2025-03-18 19:22 | XMS_ITS | Clinical Summary ---
Author Organization [facility] [address] [facility] Address [address] [place] [address] Care Team Providers Care Statistical Clerk Name Role Phone Blessing Jolly Primary Care Provider +1- [phone] Allergies No known active allergies Medications sildenafiL (VIAGRA) 50 mg tablet TAKE 1 TABLET BY MOUTH DAILY NEEDED FOR ERECTILE DYSFUNCTION 30 tablet 11/12/19 24 Active rosuvastatin (CRESTOR) 10 mg tablet Take 1 tablet (10 mg total) by mouth daily 90 tablet 3 12/13/19 25 Active buPROPion XL (WELLBUTRIN XL) 300 mg 24 hr tablet Take 1 tablet (300 mg total) by mouth every morning 90 tablet 3 12/13/19 25 Active lisinopriL (PRINIVIL,ZEST RIL) 30 mg tablet TAKE 1 TABLET BY MOUTH EVERY DAY 90 tablet 1 01/26/20 25 Active meloxicam (MOBIC) 7.5 mg tablet TAKE 1 TABLET BY MOUTH EVERY DAY 90 tablet 03/17/20 25 Active meloxicam (MOBIC) 7.5 mg tablet Take 1 tablet (7.5 mg total) by mouth daily 90 tablet 12/13/19 25 025 Discontinued Active Problems Problem Noted Date Diagnosed Date Immunity status testing 12/25/2024 Rib pain 12/25/2024 Lateral epicondylitis of left elbow 12/25/2024 Colon cancer screening 08/23/2023 Prostate cancer screening 04/07/2022 Assessment & Plan (08/23/2023 5:10 PM OLIVE PICKER): Check PSA Assessment & Plan (04/07/2022 12:40 AM CDT): Check PSA Nocturia 04/07/2022 Assessment & Plan (04/07/2022 12:42 AM CDT): This is a significant, separately identifiable problem that was evaluated and managed on the same day as the wellness exam Patient has noticed increased nocturia. Will rule out UTI. He desires referral to [place] urology consult for further evaluation Morbid obesity 11/18/2021 Assessment & Plan (12/12/2024 4:00 PM CDT): Discussed the patient's BMI. The BMI is above average. BMI management plan is completed. BMI Follow-up includes: nutrition counseling, exercise counseling and education provided. Assessment & Plan (08/23/2023 5:10 PM OLIVE PICKER): Discussed the patient's BMI. The BMI is [...] counseling, exercise counseling and education provided. BMI 35.0-35.9,adult 11/18/2021 Assessment & Plan (12/12/2024 4:00 PM CDT): Discussed the patient's BMI. The BMI is above average. BMI management plan is completed. BMI Follow-up includes: nutrition counseling, exercise counseling and education provided. Assessment & Plan (08/23/2023 5:10 PM OLIVE PICKER): Discussed the patient's BMI. The BMI is [...] 11/18/2021 Assessment & Plan (08/23/2023 5:10 PM OLIVE PICKER): Continue Viagra Assessment & Plan (04/07/2022 12:40 [...] 11/18/2021 Assessment & Plan (08/23/2023 5:10 PM OLIVE PICKER): Bp is stable/in acceptable range for any [...] 11/05/2020 Assessment & Plan (08/23/2023 5:10 PM OLIVE PICKER): Encouraged healthy lifestyle, good nutrition and exercise. [...] 11/05/2020 Assessment & Plan (08/23/2023 5:10 PM OLIVE PICKER): Probably multifactorial. Check labs and followup to re-evaluate Assessment & Plan (04/07/2022 12:40 AM CDT): Probably multifactorial. Check labs and followup to re-evaluate Assessment & Plan (11/05/2020 9:26 PM CDT): .sfati Diabetes mellitus screening 11/05/2020 Assessment & Plan (04/07/2022 12:40 AM CDT): Check labs Assessment & Plan (11/05/2020 9:26 PM CDT): Check labs Influenza vaccine refused 08/14/2019 Assessment & Plan (08/14/2019 9:38 PM OLIVE PICKER): Encouraged vaccine. Reviewed risks/ benefits. Patient refuses and accepts risks. Moderate episode of recurrent major depressive d isorder 12/12/2018 Assessment & Plan (08/23/2023 5:09 PM OLIVE PICKER): Continue Wellbutrin XL 300 Assessment & Plan [...] CDT): Continue Cymbalta 90mg daily and Wellbutrin [id number] daily Assessment & Plan (09/19/2019 8:49 AM OLIVE PICKER): Stable with the Wellbutrin 300 mg and Cymbalta 90 mg. New prescription sent to pharmacy. Will plan to have him follow-up in about 6 months. Still encourage counseling. He still has the name a counselors in the area. Also discussed the possibility of an EAP opportunity at his employer. Encouraged him to check with human resources. Assessment & Plan (08/14/2019 9:39 PM OLIVE PICKER): This is a significant, separately identifiable problem [...] 12/12/2018 Assessment & Plan (08/23/2023 5:10 PM OLIVE PICKER): Encouraged patient to follow low fat/low chol [...] statin Assessment & Plan (08/14/2019 9:35 PM OLIVE PICKER): Encouraged patient to continue low fat/low chol diet. Continue exercise. Increase good fats in the diet. Monitor labs as needed. Assessment & Plan (12/18/2018 12:59 PM CDT): Encouraged patient to continue low fat/low chol diet. Continue exercise. Increase good fats in the diet. Monitor labs as needed. Continue statin Daytime sleepiness 12/12/2018 Vitamin D deficiency 12/12/2018 Assessment & Plan (08/14/2019 9:34 PM OLIVE PICKER): supplement Assessment & Plan (12/18/2018 12:58 PM CDT): Supplement otc Hypertriglyceridemia 12/12/2018 Assessment & Plan (08/23/2023 5:10 PM OLIVE PICKER): Encouraged patient to follow low fat/low chol [...] statin Assessment & Plan (08/14/2019 9:34 PM OLIVE PICKER): Encouraged patient to continue low fat/low chol [...] 021 Assessment & Plan (09/19/2019 8:17 AM OLIVE PICKER): Obesity is unchanged. Discussed the patient's BMI. The BMI is above average. BMI management plan is completed. BMI Follow-up includes: nutrition counseling, exercise counseling and education provided. Annual physical exam 08/14/2019 020 Assessment & Plan (08/14/2019 9:38 PM OLIVE PICKER): Encouraged healthy lifestyle, good nutrition and exercise. Encouraged Calcium and Vitamin D and weight bearing exercise for bone health. Reviewed immunizations Reviewed age appropirate screenings. BMI 38.0-38.9,adult 08/03/2019 09/19/19 20 Assessment & Plan (08/03/2019 8:12 AM OLIVE PICKER): Obesity is unchanged. Discussed the patient's BMI. [...] 12/13/20182020 Assessment & Plan (09/19/2019 8:17 AM OLIVE PICKER): Obesity is unchanged. Discussed the patient's BMI. The BMI is above average. BMI management plan is completed. BMI Follow-up includes: nutrition counseling, exercise counseling and education provided. Assessment & Plan (08/03/2019 8:13 AM OLIVE PICKER): Obesity is unchanged. Discussed the patient's BMI. [...] others; identify saboteurs; non-food rewards, etc). Immunizations Immunization Administration Dates Next Due Influenza, Unspecified 08/17/2024(Deferr ed: Patient decision),11/15/2021(Deferred: Patient Refused),09/17/2021(Deferred: Patient Refused),08/03/2019(Deferred: [...] Packs/Day Years Used Date Smoking Tobacco: Never Smokeless Tobacco: Never Tobacco Cessation:Counseling Given: Not Answered Alcohol Use Standard Drinks/Week Comments Yes 0 (1 standard drink = 0.6 oz pur e alcohol) AUDIT-C Answer Date Recorded Q1: How often do you have a drink containing alcohol? Never 12/12/2024 Q2: How many drinks containi ng alcohol do you have on a typical day when you are drinking? Patient does not drink Q3: How often do you have si x or more drinks on one occasion? 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 file Not on file Not on file Obstetrics History Last Filed Vital Signs Vital Sign Reading Time Taken Comments Blood Pressure 134/86 12/12/2024 3:58 PM CDT Pulse 81 12/12/2024 3:58 PM CDT Temperature 36.7 C (98 F) 12/12/2024 3:58 PM CDT Respiratory Rate 18 08/20/2023 5:03 PM OLIVE PICKER Oxygen Saturation 97% 12/12/2024 3:58 PM CDT Inhaled Oxygen Concentration - - Weight 108.4 kg (239 lb) 12/12/2024 3:58 PM CDT Height 175.3 cm (5' 9) 12/12/2024 3:58 PM CDT Body Mass Index 35.29 12/12/2024 3:58 PM CDT Plan of Treatment Health Maintenance Due Date Last Done Comments Hepatitis B Screening 1985 Zoster Vaccine (1 of 2) 2017 Colon Cancer Screening-Colonoscopy 01/27/2024 01/26/2014 Influenza Vaccine (#1) 2025 Depression Screening 12/12/2025 12/12/2024, 08/18/2023, 08/18/2023, Additional history exists Regular Well Visit/Exam 18-64 12/12/2025 12/12/2024, 08/18/2023, 11/18/2021, Additional history exists Prostate Cancer Screening-PSA 12/10/2026 12/10/2024, 05/16/2023, 08/02/2019 DTaP/Tdap/Td Vaccine (3 - Td [...] Date/Time Associated Diagnosis Comments PSA SCREEN Routine 12/10/2024 8:50 AM CDT Annual physical exam Prostate cancer screening HEPATITIS PANEL, ACUTE Routine 12/07/2021 10:19 AM CDT Elevated LFTs COLONOSCOPY Routine 01/26/2014 from Last 3 Months or Most Recently Relevant to Health Maintenance Results * PSA screen (12/10/2024 8:50 AM CDT) PSA 2.74 < OR = 4.00 ng/mL [facility] Comment: The total PSA value from [...] the presence or absence of disease. Blood 12/10/2024 8:50 AM CDT 12/10/2024 8:51 AM CDT Narrative [facility] - 12/11/2024 6:54 AM CDT FASTING:YES FASTING: YES us Blessing [facility] BLOOD ORDERABLES Final Result [facility] [address] [place] [address] * Hepatitis panel, acute (12/07/2021 10:19 AM CDT) Hep A IgM NON-REACTI VE NON-REACT JAYESH [facility] Comment: For additional information, please refer to http://[employer].BroadClip/faq/VXO028 (This link is being provided for informational/ [...] a test for HCV RNA (test code 00577) is suggested. For additional information please refer to http://[employer].BroadClip/faq/NZV38m2 (This link is being provided for informational/ educational purposes only.) Blood specimen (specimen) 12/07/2021 10:19 AM CDT 12/07/2021 10:19 AM CDT Blessing [facility] MICROBIOLOGY - GENERAL ORDERABLES Final Result [facility] [address] [place] [address] * Colonoscopy (01/26/2014) Anatomical Region Laterality Modality Other Historical Provider ENDOSCOPY PROCEDURES Olivia gonzales Result from Last 3 Months or Most Recently Relevant to Health Maintenance Insurance [facility] CHOICE PLUS [facility] H[facility]/PPO Address: [address] [address] [place] [address] Care Teams Statistical Clerk Relationship Specialty Start Date End Date Blessing Jolly PA [address] [place] [address] PCP - General Internal Medicine 12/13/18
--- OUTSIDE RECORDS SUMMARY | 2025-03-18 19:22 | XMS_ITS | Encounter Summary ---
Author Organization [facility] Facility Care Team Providers Care Virtual Assistant For Advertisers Name Role Phone Blessing Jolly Primary Care Provider +1- [phone] Encounter Details Date Type Department Care Team (Latest Contact Info) Description 11/03/2016 Orders Only [facility] CLINCONV Provider, MD Richi [address] [place] [address] Social History Tobacco Use Types Packs/Day Years Used Date Smoking Tobacco: Never Assessed Sex and Gender Information Value Date Recorded Sex Assigned at Not on file Legal Sex Male 8:50 AM HARD TILE SETTER Gender Identity Male 12/08/2021 9:51 PM CDT [...] COVID: Suspected 08/20/2023 08/20/2023 08/20/2023 5:37 PM HARD TILE SETTER COVID: Suspected 08/20/2023 08/20/2023 08/20/2023 10:18 PM HARD TILE SETTER Influenza, adult 08/20/2023 08/20/2023 08/27/2023 3:07 AM HARD TILE SETTER documented as of this encounter Care Teams Virtual Assistant For Advertisers Relationship Specialty Start Date End Date Blessing Jolly PA [address] [facility] [address] [place] [address] PCP - General Internal Medicine 12/13/18 documented as of this encounter
--- OUTSIDE RECORDS SUMMARY | 2025-03-18 19:22 | XMS_ITS | Encounter Summary ---
Author Organization [facility] Facility Care Team Providers Care Devulcanizer Operator Name Role Phone Blessing Jolly Primary Care Provider +1- [phone] Encounter Details Date Type Department Care Team (Latest Contact Info) Description 03/03/2017 Orders Only [facility] CLINCONV ProviderRichi MD [address] [place] [address] Social History Tobacco Use Types Packs/Day Years Used Date Smoking Tobacco: Never Assessed Sex and Gender Information Value Date Recorded Sex Assigned at Not on file Legal Sex Male 8:50 AM LITHOGRAPHIC STRIPPER Gender Identity Male 12/08/2021 9:51 PM CDT [...] COVID: Suspected 08/20/2023 08/20/2023 08/20/2023 5:37 PM LITHOGRAPHIC STRIPPER COVID: Suspected 08/20/2023 08/20/2023 08/20/2023 10:18 PM LITHOGRAPHIC STRIPPER Influenza, adult 08/20/2023 08/20/2023 08/27/2023 3:07 AM LITHOGRAPHIC STRIPPER documented as of this encounter Care Teams Devulcanizer Operator Relationship Specialty Start Date End Date Blessing Jolly PA [address] [facility] [address] [place] [address] PCP - General Internal Medicine 12/13/18 documented as of this encounter
--- OUTSIDE RECORDS SUMMARY | 2025-03-18 19:22 | XMS_ITS | Encounter Summary ---
Author Organization [facility] Facility Care Team Providers Care Assessment Nurse Practitioner Name Role Phone Blessing Jolly Primary Care Provider +1- [phone] Encounter Details Date Type Department Care Team (Latest Contact Info) Description 03/26/2018 Orders Only [facility] CLINCONV ProviderRichi MD [address] [place] [address] Social History Tobacco Use Types Packs/Day Years Used Date Smoking Tobacco: Never Assessed Sex and Gender Information Value Date Recorded Sex Assigned at Not on file Legal Sex Male 8:50 AM PROCESS ENGINEERING INTERN Gender Identity Male 12/08/2021 9:51 PM CDT [...] COVID: Suspected 08/20/2023 08/20/2023 08/20/2023 5:37 PM PROCESS ENGINEERING INTERN COVID: Suspected 08/20/2023 08/20/2023 08/20/2023 10:18 PM PROCESS ENGINEERING INTERN Influenza, adult 08/20/2023 08/20/2023 08/27/2023 3:07 AM PROCESS ENGINEERING INTERN documented as of this encounter Care Teams Assessment Nurse Practitioner Relationship Specialty Start Date End Date Blessing Jolly PA [address] [facility] [address] [place] [address] PCP - General Internal Medicine 12/13/18 documented as of this encounter
--- OUTSIDE RECORDS SUMMARY | 2025-03-18 19:22 | XMS_ITS | Referral Summary ---
Author Organization [facility] 1234 [facility] Address [address] [place] [address] Care Team Providers Care Speech And Hearing Director Name Role Phone Blessing Jolly Primary Care Provider +1- [phone] Allergies No known active allergies Medications sildenafiL [...] 04/07/2022 Assessment & Plan (08/23/2023 5:10 PM THREAD INSPECTOR): Check PSA Assessment & Plan (04/07/2022 12:40 AM CDT): Check PSA Nocturia 04/07/2022 Assessment & Plan (04/07/2022 12:42 AM CDT): This is a significant, separately identifiable problem that was evaluated and managed on the same day as the wellness exam Patient has noticed increased nocturia. Will rule out UTI. He desires referral to [place] urology consult for further evaluation Morbid obesity 11/18/2021 Assessment & Plan (12/12/2024 4:00 PM CDT): Discussed the patient's BMI. The BMI is above average. BMI management plan is completed. BMI Follow-up includes: nutrition counseling, exercise counseling and education provided. Assessment & Plan (08/23/2023 5:10 PM THREAD INSPECTOR): Discussed the patient's BMI. The BMI is [...] provided. Assessment & Plan (08/23/2023 5:10 PM THREAD INSPECTOR): Discussed the patient's BMI. The BMI is [...] 11/18/2021 Assessment & Plan (08/23/2023 5:10 PM THREAD INSPECTOR): Continue Viagra Assessment & Plan (04/07/2022 12:40 [...] 11/18/2021 Assessment & Plan (08/23/2023 5:10 PM THREAD INSPECTOR): Bp is stable/in acceptable range for any [...] 11/05/2020 Assessment & Plan (08/23/2023 5:10 PM THREAD INSPECTOR): Encouraged healthy lifestyle, good nutrition and exercise. [...] 11/05/2020 Assessment & Plan (08/23/2023 5:10 PM THREAD INSPECTOR): Probably multifactorial. Check labs and followup to re-evaluate Assessment & Plan (04/07/2022 12:40 AM CDT): Probably multifactorial. Check labs and followup to re-evaluate Assessment & Plan (11/05/2020 9:26 PM CDT): .sfati Diabetes mellitus screening 11/05/2020 Assessment & Plan (04/07/2022 12:40 AM CDT): Check labs Assessment & Plan (11/05/2020 9:26 PM CDT): Check labs Influenza vaccine refused 08/14/2019 Assessment & Plan (08/14/2019 9:38 PM THREAD INSPECTOR): Encouraged vaccine. Reviewed risks/ benefits. Patient refuses and accepts risks. Moderate episode of recurrent major depressive d isorder 12/12/2018 Assessment & Plan (08/23/2023 5:09 PM THREAD INSPECTOR): Continue Wellbutrin XL 300 Assessment & Plan [...] CDT): Continue Cymbalta 90mg daily and Wellbutrin [id number] daily Assessment & Plan (09/19/2019 8:49 AM THREAD INSPECTOR): Stable with the Wellbutrin 300 mg and Cymbalta 90 mg. New prescription sent to pharmacy. Will plan to have him follow-up in about 6 months. Still encourage counseling. He still has the name a counselors in the area. Also discussed the possibility of an EAP opportunity at his employer. Encouraged him to check with human resources. Assessment & Plan (08/14/2019 9:39 PM THREAD INSPECTOR): This is a significant, separately identifiable problem [...] 12/12/2018 Assessment & Plan (08/23/2023 5:10 PM THREAD INSPECTOR): Encouraged patient to follow low fat/low chol [...] statin Assessment & Plan (08/14/2019 9:35 PM THREAD INSPECTOR): Encouraged patient to continue low fat/low chol diet. Continue exercise. Increase good fats in the diet. Monitor labs as needed. Assessment & Plan (12/18/2018 12:59 PM CDT): Encouraged patient to continue low fat/low chol diet. Continue exercise. Increase good fats in the diet. Monitor labs as needed. Continue statin Daytime sleepiness 12/12/2018 Vitamin D deficiency 12/12/2018 Assessment & Plan (08/14/2019 9:34 PM THREAD INSPECTOR): supplement Assessment & Plan (12/18/2018 12:58 PM CDT): Supplement otc Hypertriglyceridemia 12/12/2018 Assessment & Plan (08/23/2023 5:10 PM THREAD INSPECTOR): Encouraged patient to follow low fat/low chol [...] statin Assessment & Plan (08/14/2019 9:34 PM THREAD INSPECTOR): Encouraged patient to continue low fat/low chol [...] 021 Assessment & Plan (09/19/2019 8:17 AM THREAD INSPECTOR): Obesity is unchanged. Discussed the patient's BMI. The BMI is above average. BMI management plan is completed. BMI Follow-up includes: nutrition counseling, exercise counseling and education provided. Annual physical exam 08/14/2019 020 Assessment & Plan (08/14/2019 9:38 PM THREAD INSPECTOR): Encouraged healthy lifestyle, good nutrition and exercise. Encouraged Calcium and Vitamin D and weight bearing exercise for bone health. Reviewed immunizations Reviewed age appropirate screenings. BMI 38.0-38.9,adult 08/03/2019 09/19/19 20 Assessment & Plan (08/03/2019 8:12 AM THREAD INSPECTOR): Obesity is unchanged. Discussed the patient's BMI. [...] 12/13/20182020 Assessment & Plan (09/19/2019 8:17 AM THREAD INSPECTOR): Obesity is unchanged. Discussed the patient's BMI. The BMI is above average. BMI management plan is completed. BMI Follow-up includes: nutrition counseling, exercise counseling and education provided. Assessment & Plan (08/03/2019 8:13 AM THREAD INSPECTOR): Obesity is unchanged. Discussed the patient's BMI. 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 Not on file Not on file Last Filed Vital Signs Vital Sign Reading Time Taken Comments Blood Pressure 134/86 12/12/2024 3:58 PM CDT Pulse 81 12/12/2024 3:58 PM CDT Temperature 36.7 C (98 F) 12/12/2024 3:58 PM CDT Respiratory Rate 18 08/20/2023 5:03 PM THREAD INSPECTOR Oxygen Saturation 97% 12/12/2024 3:58 PM CDT Inhaled Oxygen Concentration - - Weight 108.4 kg (239 lb) 12/12/2024 3:58 PM CDT Height 175.3 cm (5' 9) 12/12/2024 3:58 PM CDT Body Mass Index 35.29 12/12/2024 3:58 PM CDT Plan of Treatment Not on file Procedures [...] PSA 2.74 < OR = 4.00 ng/mL [facility] BLOOD ORDERABLES Final Result [facility] [address] [address] * Hepatitis panel, acute (12/07/2021 10:19 AM CDT) Hep A IgM NON-REACTI VE NON-REACT JAYESH [facility] Comment: For additional information, please refer to http://[employer].Ancestry/faq/ZPO824 (This link is being provided for informational/ [...] a test for HCV RNA (test code 38209) is suggested. For additional information please refer to http://[employer]uity.Ancestry/faq/LQD56y1 (This link is being provided for informational/ educational purposes only.) Blood specimen (specimen) 12/07/2021 10:19 AM CDT 12/07/2021 10:19 AM CDT Blessing [facility] MICROBIOLOGY - GENERAL ORDERABLES Final Result [facility] [address] [address] * Colonoscopy (01/26/2014) Anatomical Region Laterality Modality Other Historical Provider ENDOSCOPY PROCEDURES Olivia l Result from Last 3 Months or Most Recently Relevant to Health Maintenance Insurance [facility] CHOICE PLUS Care Teams Speech And Hearing Director Relationship Specialty Start Date End Date Blessing Jolly PA [address] [facility] [address] [place] [address] PCP - General Internal Medicine 12/13/18
[2025-03-18 19:31] VITALS: BP 125/92; PULSE 90; RESP 16; TEMP 36.6; O2SAT 97
--- NOTE | 2025-03-18 19:37 | ED.GENADULT ---
HPI - General Adult General Chief complaint: Skin/Abscess/Foreign Body Stated complaint: Laceration to Left Fingers Source: patient Mode of arrival: ambulatory Limitations: no limitations History of Present Illness HPI narrative: Patient presents for evaluation of a left hand injury. He indicates he was working on a fan on 03/11. He fell backward and cut the 2nd, 3rd, 4th digits of the left hand in the process. He was not seen by a medical provider at that time. He states the lacerations to the 2nd and 4th digits have been healing well. He has had decreased ROM of the 3rd digit of the left hand since that time secondary to swelling. He now has redness and drainage from that digit, as the laceration is not approximated. He denies any fever, chills, nausea, vomiting. He is not diabetic. Date of last tetanus unknown. He is right-hand dominant. He has been alternating Tylenol and ibuprofen with minimal improvement thereafter. Related Data Home Medications ?Medication ?Instructions ?Recorded ?Confirmed ?Last Taken ?Type bupropion HCl 300 mg 24 hr tablet, 300 mg PO QAM 06/27/21 06/27/21 Unknown History extended release lovastatin 20 mg tablet 20 mg PO DAILY 06/27/21 03/18/25 Unknown History lisinopril 30 mg tablet mg 05/06/24 Unknown History sildenafil 50 mg tablet mg 05/06/24 Unknown History rosuvastatin 10 mg tablet mg 03/18/25 Unknown History Allergies Allergy/AdvReac Type Severity Reaction Status Date / Time No Known Allergies Allergy Verified 09/23/24 13:46 Review of Systems Review of Systems: CONSTITUTIONAL: Denies fever, chills, or sweats. EYES: Denies visual changes, redness, or discharge. ENT: Denies rhinorrhea, congestion, sore throat, or otalgia. CARDIOVASCULAR: Denies chest pain, palpitations, or edema. RESPIRATORY: Denies cough or dyspnea. GASTROINTESTINAL: Denies abdominal pain, nausea, vomiting, or diarrhea. GENITOURINARY: Denies dysuria or hematuria. SKIN: Reports lacerations to the 2nd, 3rd, 4th digits the left hand. Reports drainage from the laceration of the 3rd digit of the left hand. MUSCULOSKELETAL: Reports pain and decreased range of motion in the 3rd digit of the left hand. NEUROLOGIC: Denies headache, numbness, dizziness, or weakness. PSYCHIATRIC: Denies anxiety or depression. [facility] Past Medical History Medical History Hyperlipidemia Hypertension Surgical History Surgical History No pertinent past surgical history Family History Family History Mother Family history non-contributory Social History Social History Substance use: never Living arrangements: with family Additional occupation/education comments: [employer] Gender identity (if verbalized by the patient): Male Sexual Orientation (if Verbalized by the Patient): Straight or Heterosexual Exam Narrative: GENERAL: Well-appearing, well-nourished, and in no acute distress. HEAD: Normocephalic, atraumatic. EYES: PERRLA and EOMI. ENT: Nares clear, no rhinorrhea or epistaxis. Mucous membranes moist. Oropharynx without tonsillar hypertrophy exudate or other lesions. Bilateral TMs pearly ramey nonbulging NECK: Supple. No adenopathy or masses. No carotid bruits or JVD CHEST: Clear to auscultation. No respiratory distress. No wheezes rales or rhonchi HEART: Regular rate and rhythm. No murmur heard. Normal peripheral pulses. ABDOMEN: Soft, nontender, nondistended, normal active bowel sounds. EXTREMITIES: Decreased range of motion of the 3rd digit of the left hand. There is tenderness surrounding the laceration of the 3rd digit of the left hand. SKIN: There is a linear scar noted to the 2nd digit of the left hand in a transverse formation across the palmar surface. There is an approximately 3 cm linear laceration to the palmar aspect of 3rd digit of the left hand with exposed subcutaneous tissue. There is some surrounding redness and a scant amount of serous drainage present NEURO: No focal deficits. Alert and oriented x3. PSYCH: Normal mood and affect. Course Course Emergency Course: This is a 59-year-old male who presented for evaluation of infected wound to the 3rd digit of the left hand after experiencing laceration on 03/11/2025. X-ray negative for fracture. He was updated on tetanus. He was given a digital block and wound was irrigated with hydrogen peroxide, Betadine, normal saline, and wound cleanser. He tolerated this well. Antibiotic ointment was applied and provided with a finger splint. Attempted to contact Orthopedics but was unable to reach them. I provided patient with contact information for Dr. Marquez. I recommended he call Thursday for an appointment. If he has worsening symptoms including redness or drainage from the area he should go to the emergency department. I will discharge him with Bactrim, Keflex, and hydrocodone. Patient in agreement with plan of care. Level of Care: Express Care Visit Vital Signs Vital signs: Vital Signs Temperature 36.6 C 03/18/25 19:31 Pulse Rate 90 03/18/25 19:31 Respiratory Rate 16 03/18/25 19:31 Blood Pressure 125/92 H 03/18/25 19:31 Pulse Oximetry 97 03/18/25 19:31 Oxygen Delivery Room Air 03/18/25 19:31 Temperature 36.6 C 03/18/25 19:31 Pulse Rate 90 03/18/25 19:31 Respiratory Rate 16 03/18/25 19:31 Blood Pressure 125/92 H 03/18/25 19:31 Pulse Oximetry 97 03/18/25 19:31 Oxygen Delivery Room Air 03/18/25 19:31 Medical Decision Making Vital Signs Vital Signs: Vital Signs Temperature 36.6 C 03/18/25 19:31 Pulse Rate 90 03/18/25 19:31 Respiratory Rate 16 03/18/25 19:31 Blood Pressure 125/92 H 03/18/25 19:31 Pulse Oximetry 97 03/18/25 19:31 Oxygen Delivery Room Air 03/18/25 19:31 Temperature 36.6 C 03/18/25 19:31 Pulse Rate 90 03/18/25 19:31 Respiratory Rate 16 03/18/25 19:31 Blood Pressure 125/92 H 03/18/25 19:31 Pulse Oximetry 97 03/18/25 19:31 Oxygen Delivery Room Air 03/18/25 19:31 Imaging Data Radiologist's impression: EXAM: XR hand LT min 3V DATE: 03/18/2025 19:44 HISTORY: lacerations to palmar 2,3,4th digits/decreased rom of 3rd . COMPARISON: 11/25/2005. FINDINGS: Normal mineralization. No fracture or dislocation. No lytic or blastic lesion. Joint spaces are maintained. No erosion or periosteal change. Soft tissues within normal limits. Chronic punctate radiopaque foreign debris in the first finger. Soft tissue swelling of the left second and third digits. IMPRESSION: No acute osseous finding in the left hand. Discharge Plan Discharge Clinical Impression: Finger laceration, Finger infection Patient Disposition: Home Condition: Stable Instructions: Antibiotic Form, Finger Laceration (ED) Additional Instructions: If you have worsening redness or drainage from the finger, please go to the emergency department. Take antibiotics as directed Wear splint Wash area 3 times a day with antibacterial soap and water. Pat dry. Apply Neosporin. Keep hand clean Patient Language: Bermudian Prescriptions: New sulfamethoxazole-trimethoprim [Bactrim DS] 800-160 mg tablet 1 tablet PO Q12H Qty: 20 0RF cephalexin 500 mg capsule 500 mg PO Q6H Qty: 40 0RF No Action lovastatin 20 mg Tablet 20 mg PO DAILY bupropion HCl 300 mg Tablet Extended Release 24 Hr 300 mg PO QAM sildenafil 50 mg tablet lisinopril 30 mg tablet amoxicillin-pot clavulanate 875-125 mg tablet 1 tablet PO Q12H 10 Days Qty: 20 0RF rosuvastatin 10 mg tablet Follow-up/Referrals: Blaise Marquez MD [Physician] - Shanae,MIKE Fnuk [Primary Care Provider] - Time of Disposition: 20:10
[2025-03-18] MEDS: TETANUS,DIPHTHERIA,AC PERTUSSIS ADULT (0.5 ML) BOOSTRIX IM (19:51)
== END 2025-03-18 20:22 | disposition home or self-care (01) ==
PROVIDERS: Emergency Provider Nurse Practitioner; PCP Physician Assistant
DX: S61.213A Laceration without foreign body of left middle finger without damage to nail, initial encounter (principal); L08.9 Local infection of the skin and subcutaneous tissue, unspecified; W19.XXXA Unspecified fall, initial encounter; Z23 Encounter for immunization; I10 Essential (primary) hypertension; E78.5 Hyperlipidemia, unspecified
CPT/HCPCS: 73130; 90471; 90715; 99213; G0463; J2003